=== PATIENT | female | born 1970 | race Caucasian/White ===

== ENCOUNTER 2018-10-02 12:48 | Inpatient (IN) ==
[2018-10-02] MEDS ORDERED: VECURONIUM 10 MG VIAL IV ONE ×2 (12:58→15:34)
[2018-10-02] MEDS ORDERED: PHENYLEPHRINE DRIP 40 MG/250 ML PREMIX IV ONE (12:59)
[2018-10-02] MEDS ORDERED: VECURONIUM 10 MG VIAL IV STA ×2 (13:00→15:42)
[2018-10-02] MEDS ORDERED: ENOXAPARIN 100 MG/ML SYRINGE SUBCUT STA (13:28)
[2018-10-02] MEDS ORDERED: PHENYLEPHRINE DRIP 40 MG/250 ML PREMIX IV PRN (13:29)
[2018-10-02] MEDS ORDERED: ASPIRIN 300 MG SUPP RECTAL STA (13:30)
[2018-10-02 13:35] LABS: ABG Base Excess -2.3 MMOL/L (-2.5-2.5); ABG HCO3 22.5 MMOL/L (20-26); ABG Oxygen Saturation 99.4 % (95-100); ABG PCO2 41.2 MM HG (35-48); ABG PH 7.357 (7.35-7.45); ABG TCO2 20.5 MMOL/L (23-27)
[2018-10-02 13:55] LABS: Apearance,Urine Slightly Hazy (Clear); Bilirubin,Urine Negative (Negative); Blood, Urine Small mg/dL (Negative); Glucose,Urine (UA) >=500 mg/dL (Negative); Hyaline Casts,Urine 9 /LPF (0-3); Ketones,Urine 5 mg/dL (Negative); Mucus,Urine Occasional /LPF (Occasional); Nitrite,Urine Negative (Negative); Protein,Urine 100 MG/DL; RBC,Urine 4 /HPF (0-4); Squamous Epithelial Cell,Urine Occasional /HPF (0-10); Urine Color Yellow (Yellow); Urine Specific Gravity 1.012 (1.001-1.035); Urine Urobilinogen < 2.0 EU/DL (0.2-1.0); WBC,Urine 4 /HPF (0-6)
[2018-10-02] MEDS ORDERED: ENOXAPARIN 80 MG/0.8 ML SYRINGE SUBCUT ONE (13:57)
[2018-10-02 13:58] LABS: Basophils # 0.1 10*3/uL (0.0-0.2); Basophils % 0.5 % (0.0-0.8); Eosinophils # 0.1 10*3/uL (0.0-0.87); Eosinophils % 0.5 % (0.00-10.9); Hematocrit 37.9 VOL% (35.7-47.0); Hemoglobin 12.4 GM/DL (12.0-16.0); Immature Granulocytes % 0.6 %; Immature Granulocytes Absolute 0.06 #; Lymphocytes % 9.8 % (21.3-54.2); Mean Corpuscular HGB Conc 32.7 GM/DL (32-36); Mean Corpuscular Hemoglobin 34 PG (27-34); Mean Corpuscular Volume 103.3 FL (87-102); Mean Platelet Volume 9.6 FL (9.6-12.0); Monocytes # 0.4 10*3/uL (0.11-0.8); Monocytes % 3.9 % (1.7-12.7); Neutrophils # 8.8 10*3/uL (1.4-7.4); Neutrophils % 84.7 % (38.7-73.9); Platelet Count 232 T/CUMM (130-400); Red Blood Count 3.67 MC/CUMM (3.8-5.5); Red Cell Distribution Width 14.5 % (9.3-17.3); White Blood Count 10.4 T/CUMM (4-12)
[2018-10-02] MEDS ORDERED: SODIUM CHLORIDE 0.9% 500 ML IV STA (14:00)
[2018-10-02 14:11] LABS: Barbiturates Screen,Urine Negative (Negative); Benzodiazepines Screen,Urine Positive (Negative); Cannabinoid Screen,Urine Negative (Negative); Opiate Screen,Urine Negative (Negative); Phencyclidine Screen,Urine Negative (Negative)
[2018-10-02] MEDS ORDERED: MIDAZOLAM 100 MG in SODIUM CHLORIDE 0.9% 80 ML IV PRN (14:15)
[2018-10-02 14:22] LABS: Albumin 3.3 G/DL (3.4-5.0); Bilirubin,Total 0.5 MG/DL (0.2-1.0); Calcium 7.4 MG/DL (8.5-10.1); Osmolality,Calculated 278.7 MOS/KG (273-304); Potassium 3.3 MMOL/L (3.5-5.1)
[2018-10-02] MEDS ORDERED: LORazepam 2 MG/1 ML VIAL ONE (14:28)
[2018-10-02] MEDS ORDERED: LORazepam 2 MG/1 ML VIAL IV STA ×2 (14:30→14:47)
[2018-10-02] MEDS ORDERED: PHENYLEPHRINE DRIP 40 MG/250 ML PREMIX IV SCH (14:30)
[2018-10-02] MEDS ORDERED: GLUCAGON 1 MG VIAL IM PRN (14:43)
[2018-10-02] MEDS ORDERED: DEXTROSE 50% 25 GM/50 ML SYRINGE IV PRN (14:43)
[2018-10-02] MEDS ORDERED: MAGNESIUM SULF RIDER 1 GM in PREMIX 1 EACH IV PRN (14:46)
[2018-10-02] MEDS: SODIUM CHLORIDE 0.9% 1,000 ML IV SCH (14:50)
[2018-10-02] MEDS ORDERED: CISATRACURIUM 200 MG in SODIUM CHLORIDE 0.9% 180 ML IV SCH (15:00)
[2018-10-02] MEDS ORDERED: fentaNYL INJ 1,250 MCG in SODIUM CHLORIDE 0.9% 225 ML IV PRN (15:00)
[2018-10-02] MEDS ORDERED: MINERAL OIL/PETROLATUM OPH OINT 3.5 GM TUBE BOTH EYES SCH (15:00)
[2018-10-02] MEDS: PANTOPRAZOLE 40 MG VIAL IV SCH (15:15)
[2018-10-02] MEDS ORDERED: MIDAZOLAM 10 MG/2 ML VIAL ONE (15:33)
[2018-10-02] MEDS ORDERED: MIDAZOLAM 10 MG/2 ML VIAL IV STA (15:40)
[2018-10-02] MEDS ORDERED: PIPERACILLIN/TAZOBACTAM 3,375 MG in SODIUM CHLORIDE 0.9% 100 ML IV STA (16:17)
[2018-10-02] MEDS ORDERED: PIPERACILLIN/TAZOBACTAM 3,375 MG VIAL IV ONE (16:32)
[2018-10-02] MEDS: INSULIN REGULAR 100 UNIT/ML IV SCH ×2 (16:52→22:23)
[2018-10-02] MEDS: POTASSIUM CHLORIDE RIDER 100 ML IV PRN (17:48)
[2018-10-02] MEDS ORDERED: ASPIRIN CHEW 81 MG TABLET PO ONE (19:32)
[2018-10-03] MEDS: INSULIN REGULAR 100 UNIT/ML IV SCH ×2 (00:40→06:10)
[2018-10-03] MEDS ORDERED: PROPOFOL 1,000 MG/100 ML BOTTLE IV ONE (02:56)
[2018-10-03] MEDS ORDERED: PROPOFOL 1,000 MG/100 ML BOTTLE IV SCH (03:00)
[2018-10-03] MEDS: ENOXAPARIN 80 MG/0.8 ML SYRINGE SUBCUT SCH ×2 (03:16→18:16)
[2018-10-03 03:18] LABS: Basophils % 0.2 % (0.0-0.8); Eosinophils % 0.1 % (0.00-10.9); Hematocrit 33.2 VOL% (35.7-47.0); Hemoglobin 10.9 GM/DL (12.0-16.0); Immature Granulocytes % 0.5 %; Immature Granulocytes Absolute 0.04 #; Lymphocytes # 1.1 10*3/uL (1.4-4.0); Lymphocytes % 13.4 % (21.3-54.2); Mean Corpuscular HGB Conc 32.8 GM/DL (32-36); Mean Corpuscular Hemoglobin 34 PG (27-34); Mean Corpuscular Volume 102.2 FL (87-102); Mean Platelet Volume 9.4 FL (9.6-12.0); Monocytes # 0.6 10*3/uL (0.11-0.8); Monocytes % 7.5 % (1.7-12.7); Neutrophils # 6.4 10*3/uL (1.4-7.4); Neutrophils % 78.3 % (38.7-73.9); Platelet Count 231 T/CUMM (130-400); Red Blood Count 3.25 MC/CUMM (3.8-5.5); Red Cell Distribution Width 14.6 % (9.3-17.3); White Blood Count 8.2 T/CUMM (4-12)
[2018-10-03] MEDS: SODIUM CHLORIDE 0.9% 1,000 ML IV SCH ×2 (03:20→11:22)
[2018-10-03 03:49] LABS: Albumin 3.1 G/DL (3.4-5.0); Bilirubin,Total 0.5 MG/DL (0.2-1.0); Calcium 6.9 MG/DL (8.5-10.1); Osmolality,Calculated 278.4 MOS/KG (273-304); Potassium 3.3 MMOL/L (3.5-5.1); Risk Ratio 2.23; Total Protein 5.5 G/DL (6.4-8.3)
[2018-10-03 04:18] LABS: ABG Base Excess -0.6 MMOL/L (-2.5-2.5); ABG HCO3 23.9 MMOL/L (20-26); ABG Oxygen Saturation 99.2 % (95-100); ABG PH 7.421 (7.35-7.45); ABG TCO2 20.9 MMOL/L (23-27); Allen Test Positive; Pt O2 Delivery Device Ventilator
[2018-10-03] MEDS: POTASSIUM CHLORIDE RIDER 100 ML IV PRN (06:10)
[2018-10-03 08:28] LABS: Troponin I 0.293 NG/ML (0.00-0.045)
[2018-10-03] MEDS ORDERED: ASPIRIN 300 MG SUPP RECTAL SCH (09:00)
[2018-10-03] MEDS: ASPIRIN CHEW 81 MG TABLET PO SCH (10:05)
[2018-10-03] MEDS ORDERED: MAGNESIUM SULF RIDER 2 GM in PREMIX 1 EACH IV PRN (12:54)
[2018-10-03] MEDS ORDERED: diphenhydrAMINE CAP 25 MG CAPSULE PO ONE (12:54)
[2018-10-03] MEDS ORDERED: DIAZEPAM 5 MG TABLET PO ONE (12:54)
[2018-10-03] MEDS ORDERED: SODIUM CHLORIDE 0.45% 1,000 ML IV SCH (13:00)
[2018-10-03] MEDS ORDERED: LIDOCAINE 1% 20 ML VIAL ONE (13:23)
[2018-10-03] MEDS ORDERED: MIDAZOLAM 2 MG/2 ML VIAL ONE ×2 (13:29→15:06)
[2018-10-03] MEDS ORDERED: fentaNYL 100 MCG/2 ML VIAL ONE (13:29)
[2018-10-03] MEDS ORDERED: NITROGLYCERIN DRIP 50 MG/250 ML BOTTLE IV ONE (14:23)
[2018-10-03] MEDS ORDERED: HEPARIN 5,000 UNIT/1 ML VIAL ONE (14:42)
[2018-10-03] MEDS ORDERED: TIROFIBAN 5,000 MCG/100 ML PREMIX IV ONE (14:44)
[2018-10-03] MEDS ORDERED: TICAGRELOR 90 MG TABLET ONE (15:18)
[2018-10-03] MEDS ORDERED: TIROFIBAN 5,000 MCG/100 ML PREMIX IV SCH (15:30)
[2018-10-03] MEDS ORDERED: NITROGLYCERIN SL 0.4 MG TABLET SL PRN (16:05)
[2018-10-03] MEDS ORDERED: ONDANSETRON 4 MG/2 ML VIAL IV PRN (16:05)
[2018-10-03 17:00] LABS: Troponin I 0.167 NG/ML (0.00-0.045)
[2018-10-03] MEDS: PANTOPRAZOLE 40 MG VIAL IV SCH (18:17)
[2018-10-03] MEDS: amLODIPine 5 MG TABLET PO SCH (18:20)
[2018-10-03] MEDS ORDERED: SODIUM CHLORIDE 0.9% 1,000 ML IV SCH (21:00)
[2018-10-03] MEDS: ZALEPLON 5 MG CAPSULE PO PRN (21:22)
[2018-10-03] MEDS: TICAGRELOR 90 MG TABLET PO SCH (21:23)
[2018-10-03] MEDS: ROSUVASTATIN 10 MG TABLET PO SCH (21:23)
[2018-10-03] MEDS: ACETAMINOPHEN 325 MG TABLET PO PRN (21:23)
[2018-10-04 01:13] LABS: Troponin I 0.824 NG/ML (0.00-0.045)
[2018-10-04 05:14] LABS: Basophils % 0.6 % (0.0-0.8); Eosinophils % 0.6 % (0.00-10.9); Hematocrit 31.1 VOL% (35.7-47.0); Hemoglobin 10.5 GM/DL (12.0-16.0); Immature Granulocytes % 0.3 %; Immature Granulocytes Absolute 0.02 #; Lymphocytes # 1.1 10*3/uL (1.4-4.0); Lymphocytes % 16.1 % (21.3-54.2); Mean Corpuscular HGB Conc 33.8 GM/DL (32-36); Mean Corpuscular Hemoglobin 34 PG (27-34); Mean Corpuscular Volume 101.6 FL (87-102); Mean Platelet Volume 10.2 FL (9.6-12.0); Monocytes # 0.8 10*3/uL (0.11-0.8); Monocytes % 11.1 % (1.7-12.7); Neutrophils # 4.9 10*3/uL (1.4-7.4); Neutrophils % 71.3 % (38.7-73.9); Platelet Count 231 T/CUMM (130-400); Red Blood Count 3.06 MC/CUMM (3.8-5.5); Red Cell Distribution Width 14.6 % (9.3-17.3); White Blood Count 6.8 T/CUMM (4-12)
[2018-10-04 05:39] LABS: Calcium 7.5 MG/DL (8.5-10.1); Osmolality,Calculated 278.1 MOS/KG (273-304); Potassium 2.9 MMOL/L (3.5-5.1)
[2018-10-04] MEDS: POTASSIUM CHLORIDE RIDER 10 MEQ in PREMIX 1 EACH IV PRN ×2 (06:12→09:23)
[2018-10-04] MEDS ORDERED: ASPIRIN 325 MG TABLET PO SCH (09:00)
[2018-10-04] MEDS ORDERED: FLUCONAZOLE 150 MG TABLET PO ONE (09:10)
[2018-10-04] MEDS: PANTOPRAZOLE 40 MG TABLET PO SCH (09:19)
[2018-10-04] MEDS: DULoxetine 30 MG CAPSULE PO SCH (09:19)
[2018-10-04] MEDS: amLODIPine 5 MG TABLET PO SCH (09:19)
[2018-10-04] MEDS: TICAGRELOR 90 MG TABLET PO SCH ×2 (09:20→21:06)
[2018-10-04] MEDS: ASPIRIN CHEW 81 MG TABLET PO SCH (09:20)
[2018-10-04] MEDS: ACETAMINOPHEN 325 MG TABLET PO PRN (09:22)
[2018-10-04] MEDS ORDERED: KETOROLAC 30 MG/1 ML VIAL IV ONE (11:14)
[2018-10-04] MEDS ORDERED: ALBUTEROL/IPRATROPIUM 3 ML NEB RESP TX PRN (14:00)
[2018-10-04] MEDS ORDERED: amLODIPine 5 MG TABLET PO SCH (14:00)
[2018-10-04] MEDS ORDERED: ACETAMINOPHEN 325 MG TABLET PO ONE (16:44)
[2018-10-04] MEDS: GABAPENTIN 100 MG CAPSULE PO SCH ×2 (16:59→21:05)
[2018-10-04] MEDS ORDERED: GABAPENTIN 300 MG CAPSULE PO SCH (21:00)
[2018-10-04] MEDS: MUPIROCIN 2% OINT 22 GM TUBE TOP SCH (21:04)
[2018-10-04] MEDS: LOSARTAN 25 MG TABLET PO SCH (21:04)
[2018-10-04] MEDS: ZALEPLON 5 MG CAPSULE PO PRN (21:04)
[2018-10-04] MEDS: buPROPion 75 MG TABLET PO SCH (21:05)
[2018-10-04] MEDS: ACETAMINOPHEN 325 MG TABLET PO SCH (21:05)
[2018-10-04] MEDS: ROSUVASTATIN 10 MG TABLET PO SCH (21:05)
[2018-10-04] MEDS: POTASSIUM CHLORIDE 20 MEQ TABLET PO SCH (21:05)
[2018-10-05 04:22] LABS: Basophils % 0.3 % (0.0-0.8); Eosinophils # 0.1 10*3/uL (0.0-0.87); Eosinophils % 1.3 % (0.00-10.9); Hematocrit 29.7 VOL% (35.7-47.0); Hemoglobin 10.1 GM/DL (12.0-16.0); Immature Granulocytes % 0.3 %; Immature Granulocytes Absolute 0.02 #; Mean Corpuscular Hemoglobin 35 PG (27-34); Mean Corpuscular Volume 101.4 FL (87-102); Mean Platelet Volume 10.1 FL (9.6-12.0); Monocytes # 0.8 10*3/uL (0.11-0.8); Monocytes % 11.2 % (1.7-12.7); Neutrophils % 72.9 % (38.7-73.9); Platelet Count 220 T/CUMM (130-400); Red Blood Count 2.93 MC/CUMM (3.8-5.5); Red Cell Distribution Width 14.3 % (9.3-17.3); White Blood Count 6.9 T/CUMM (4-12)
[2018-10-05 04:34] LABS: Calcium 7.8 MG/DL (8.5-10.1); Osmolality,Calculated 275.5 MOS/KG (273-304); Potassium 3.3 MMOL/L (3.5-5.1)
[2018-10-05] MEDS: POTASSIUM CHLORIDE RIDER 10 MEQ in PREMIX 1 EACH IV PRN ×2 (09:36→10:37)
[2018-10-05] MEDS: DULoxetine 30 MG CAPSULE PO SCH (09:40)
[2018-10-05] MEDS: ASPIRIN CHEW 81 MG TABLET PO SCH (09:41)
[2018-10-05] MEDS: GABAPENTIN 100 MG CAPSULE PO SCH ×2 (09:41→16:34)
[2018-10-05] MEDS: TICAGRELOR 90 MG TABLET PO SCH (09:41)
[2018-10-05] MEDS: PANTOPRAZOLE 40 MG TABLET PO SCH (09:41)
[2018-10-05] MEDS: POTASSIUM CHLORIDE 20 MEQ TABLET PO SCH (09:41)
[2018-10-05] MEDS: buPROPion 75 MG TABLET PO SCH (09:41)
[2018-10-05] MEDS: LOSARTAN 25 MG TABLET PO SCH (09:42)
[2018-10-05] MEDS: ACETAMINOPHEN 325 MG TABLET PO SCH (09:42)
[2018-10-05] MEDS: MUPIROCIN 2% OINT 22 GM TUBE TOP SCH (09:52)
[2018-10-05 15:46] VITALS: BP 123/80
== END 2018-10-05 17:45 | disposition home or self-care (01) | DRG 246 ==
LOC: N.ED 12:48 → N.EDINP 14:15 → SUATTDRO 14:15 → N.ICU 17:03 → N.TELES 10-03 16:02
PROVIDERS: ADMIT Internal Medicine; ATTEND Internal Medicine
PROC: CLCCHCL (ICD-10-PCS; 2018-10-03 13:45)

== ENCOUNTER 2019-08-31 14:20 | Observation (INO) ==
[2019-08-31] MEDS ORDERED: POTASSIUM CHLORIDE 20 MEQ TABLET PO PRN (14:23)
[2019-08-31] MEDS ORDERED: hydrALAZINE 20 MG/1 ML VIAL IV PRN (14:23)
[2019-08-31] MEDS ORDERED: MAGNESIUM SULF RIDER 2 GM in PREMIX 1 EACH IV PRN (14:23)
[2019-08-31] MEDS ORDERED: MAGNESIUM SULF RIDER 4 GM in PREMIX 1 EACH IV PRN (14:23)
[2019-08-31] MEDS ORDERED: ZALEPLON 5 MG CAPSULE PO PRN (14:23)
[2019-08-31] MEDS ORDERED: MORPHINE 4 MG/1 ML VIAL IV PRN (14:23)
[2019-08-31] MEDS ORDERED: ALUMINUM/MAGNES/SIMETH MAX STR 30 ML UDCUP PO PRN (14:23)
[2019-08-31] MEDS ORDERED: ONDANSETRON 4 MG/2 ML VIAL IV PRN (14:23)
[2019-08-31] MEDS ORDERED: NITROGLYCERIN SL 0.4 MG TABLET SL PRN ×2 (14:26→19:02)
[2019-08-31 17:40] LABS: Basophils % 0.7 % (0.0-0.8); Eosinophils # 0.1 10*3/uL (0.0-0.87); Eosinophils % 1.4 % (0.00-10.9); Hematocrit 36.5 VOL% (35.7-47.0); Hemoglobin 12.1 GM/DL (12.0-16.0); Immature Granulocytes % 0.5 %; Immature Granulocytes Absolute 0.02 #; Lymphocytes # 1.3 10*3/uL (1.4-4.0); Lymphocytes % 29.4 % (21.3-54.2); Mean Corpuscular HGB Conc 33.2 GM/DL (32-36); Mean Corpuscular Volume 102.8 FL (87-102); Mean Platelet Volume 9.3 FL (9.6-12.0); Monocytes % 14.7 % (1.7-12.7); Neutrophils % 53.3 % (38.7-73.9); Platelet Count 287 T/CUMM (130-400); Red Blood Count 3.55 MC/CUMM (3.8-5.5); Red Cell Distribution Width 14.5 % (9.3-17.3); White Blood Count 4.4 T/CUMM (4-12)
[2019-08-31 17:56] LABS: Alanine Aminotransferase 38 U/L (13-56); Albumin 3.9 G/DL (3.4-5.0); Alkaline Phosphatase 98 U/L (45-117); Aspartate Amino Transferase 26 U/L (0-37); Bilirubin,Total < 0.39 MG/DL (0.2-1.0); Blood Urea Nitrogen 18 MG/DL (7-18); Calcium 8.7 MG/DL (8.5-10.1); Estimated Glom Filtration Rate 98 ML/MIN; Glucose 97 MG/DL (74-106); Total Protein 7.3 G/DL (6.4-8.3)
[2019-08-31 17:59] LABS: Troponin I < 0.015 NG/ML (0.00-0.045)
[2019-08-31] MEDS ORDERED: traMADol 50 MG TABLET PO PRN (19:02)
[2019-08-31] MEDS: tiZANidine 4 MG TABLET PO SCH (20:42)
[2019-08-31] MEDS: carvediloL 6.25 MG TABLET PO SCH (20:42)
[2019-08-31] MEDS: TICAGRELOR 90 MG TABLET PO SCH (20:42)
[2019-08-31] MEDS: LOSARTAN 50 MG TABLET PO SCH (20:43)
[2019-08-31] MEDS: buPROPion 75 MG TABLET PO SCH (20:43)
[2019-08-31] MEDS ORDERED: ZALEPLON 5 MG CAPSULE PO SCH (21:00)
[2019-08-31] MEDS ORDERED: ROSUVASTATIN 10 MG TABLET PO SCH (21:00)
[2019-08-31] MEDS ORDERED: ENOXAPARIN 40 MG/0.4 ML SYRINGE SUBCUT SCH (21:00)
[2019-08-31] MEDS ORDERED: LIFITEGRAST BOTH EYES SCH (21:00)
[2019-08-31 21:07] LABS: Troponin I < 0.015 NG/ML (0.00-0.045)
[2019-09-01 04:53] LABS: Basophils % 0.5 % (0.0-0.8); Eosinophils # 0.1 10*3/uL (0.0-0.87); Eosinophils % 1.4 % (0.00-10.9); Hematocrit 36.1 VOL% (35.7-47.0); Hemoglobin 12.2 GM/DL (12.0-16.0); Immature Granulocytes % 0.2 %; Immature Granulocytes Absolute 0.01 #; Lymphocytes # 1.6 10*3/uL (1.4-4.0); Lymphocytes % 37.4 % (21.3-54.2); Mean Corpuscular HGB Conc 33.8 GM/DL (32-36); Mean Platelet Volume 9.3 FL (9.6-12.0); Neutrophils % 46.5 % (38.7-73.9); Platelet Count 281 T/CUMM (130-400); Red Blood Count 3.54 MC/CUMM (3.8-5.5); Red Cell Distribution Width 14.2 % (9.3-17.3); White Blood Count 4.4 T/CUMM (4-12)
[2019-09-01 05:41] LABS: Osmolality,Calculated 270.8 MOS/KG (273-304); Risk Ratio 1.86; VLDL CHOLESTEROL 27.6 MG/DL
[2019-09-01] MEDS ORDERED: ASPIRIN EC 81 MG TABLET PO SCH (09:00)
[2019-09-01] MEDS ORDERED: FOLIC ACID 1 MG TABLET PO SCH (09:00)
[2019-09-01] MEDS ORDERED: amLODIPine 5 MG TABLET PO SCH (09:00)
[2019-09-01] MEDS ORDERED: POTASSIUM CHLORIDE 20 MEQ TABLET PO SCH (09:00)
[2019-09-01] MEDS ORDERED: DULoxetine 30 MG CAPSULE PO SCH (09:00)
[2019-09-01] MEDS ORDERED: PANTOPRAZOLE 40 MG TABLET PO SCH ×2 (09:00)
[2019-09-01] MEDS: tiZANidine 4 MG TABLET PO SCH (09:12)
[2019-09-01] MEDS: LOSARTAN 50 MG TABLET PO SCH (09:12)
[2019-09-01] MEDS: carvediloL 6.25 MG TABLET PO SCH (09:12)
[2019-09-01] MEDS: buPROPion 75 MG TABLET PO SCH (09:14)
[2019-09-01] MEDS: TICAGRELOR 90 MG TABLET PO SCH (09:14)
[2019-09-01 12:46] VITALS: BP 141/67
[2019-09-07] MEDS ORDERED: METHOTREXATE 2.5 MG TABLET PO SCH (09:00)
[2019-09-07] MEDS ORDERED: ETANERCEPT 50 MG SUBCUT SCH (09:00)
== END 2019-09-01 12:15 | disposition home health service (06) ==
LOC: N.TELEN
PROVIDERS: ADMIT Internal Medicine Cardiovascular Disease; ATTEND Internal Medicine Cardiovascular Disease

== ENCOUNTER 2020-09-11 04:26 | Observation (INO) ==
[2020-09-11] MEDS ORDERED: ONDANSETRON 4 MG/2 ML VIAL IV PRN (08:20)
[2020-09-11] MEDS ORDERED: DEXTROSE 50% 25 GM/50 ML VIAL IV PRN (08:20)
[2020-09-11] MEDS ORDERED: GLUCAGON 1 MG VIAL IM PRN (08:20)
[2020-09-11] MEDS ORDERED: SODIUM CHLORIDE 0.9% 1,000 ML IV SCH (08:30)
[2020-09-11 09:39] LABS: Basophils % 0.8 % (0.0-0.8); Eosinophils # 0.1 10*3/uL (0.0-0.87); Hematocrit 31.1 VOL% (35.7-47.0); Hemoglobin 10.5 GM/DL (12.0-16.0); Lymphocytes # 1.5 10*3/uL (1.4-4.0); Lymphocytes % 36.8 % (21.3-54.2); Mean Corpuscular HGB Conc 33.8 GM/DL (32-36); Mean Corpuscular Volume 101.3 FL (87-102); Mean Platelet Volume 9.1 FL (9.6-12.0); Neutrophils % 47.4 % (38.7-73.9); Platelet Count 327 T/CUMM (130-400); Red Blood Count 3.07 MC/CUMM (3.8-5.5); Red Cell Distribution Width 13.4 % (9.3-17.3)
[2020-09-11 10:00] LABS: Calcium 7.9 MG/DL (8.5-10.1); Potassium 3.9 MMOL/L (3.5-5.1)
[2020-09-11 10:05] LABS: Eosinophils 1 % (0-10); Lymphocytes 45 % (20-55); Platelet Estimate Adequate; Segmented Neutrophils 46 % (50-85); Total Cells Counted 100
[2020-09-11 10:06] LABS: Atypical Lymphocytes Few; Hypochromasia 1+; Microcytosis 1+
[2020-09-11] MEDS ORDERED: PANTOPRAZOLE 40 MG VIAL IV SCH (11:00)
[2020-09-11 14:38] LABS: Troponin I < 0.015 NG/ML (0.00-0.045)
[2020-09-11 14:56] LABS: Hematocrit 33.2 VOL% (35.7-47.0); Hemoglobin 10.8 GM/DL (12.0-16.0)
[2020-09-11 15:53] VITALS: BP 138/91
[2020-09-11 16:23] LABS: Troponin I < 0.015 NG/ML (0.00-0.045)
[2020-09-11] MEDS ORDERED: carvediloL 6.25 MG TABLET PO SCH (17:00)
[2020-09-11] MEDS ORDERED: ROSUVASTATIN 10 MG TABLET PO SCH (21:00)
[2020-09-11] MEDS ORDERED: LOSARTAN 50 MG TABLET PO SCH (21:00)
[2020-09-12] MEDS ORDERED: amLODIPine 5 MG TABLET PO SCH (09:00)
== END 2020-09-11 16:40 | disposition home or self-care (01) ==
LOC: N.5E → SUATTDRO 06:03
PROVIDERS: ADMIT Internal Medicine; ATTEND Hospitalist